=== PATIENT | female | born 1970 | race Caucasian/White ===

== ENCOUNTER 2019-12-26 19:17 | Emergency (ER) | payer OTHER ==
[~2019-12-26] VITALS: Ht 170.2 cm; Wt 54.4 kg
[2019-12-26] MEDS ORDERED: BENADRYL25 MG PO (19:33)
[2019-12-26] MEDS ORDERED: FEXOFENADINE HC60 MG PO (19:33)
[2019-12-26] MEDS ORDERED: ADDERALL 10 MG10 MG (19:33)
[2019-12-26 19:34] VITALS: Ht 170.2 cm; Wt 54.4 kg
[2019-12-26 20:06] LABS: BASOPHILS 0.5 % (0-2); EOSINOPHILS 1.2 % (0-7); HEMATOCRIT 34.8 % (36.0-48.0); IMMATURE GRANULOCYTES 0.2 % (0-5); LYMPHOCYTES 28.3 % (15-50); MCH 20.7 pg (26.0-34.0); MCHC 31.6 g/dL (31.0-37.0); MCV 65.5 fL (80.0-100.0); NEUTROPHILS 62.8 % (40-80); PLATELET COUNT 276 10x3/uL (130-400); RBC 5.31 10x6/uL (4.00-5.40); RDW 15.6 % (11.5-14.5)
[2019-12-26 20:20] LABS: CALC OSMOLALITY 282 mosm/kg (275-300); CALCIUM 8.9 mg/dL (8.5-10.1); CARBON DIOXIDE 30.3 mmol/L (21.0-32.0); CHLORIDE - SERUM 104 mmol/L (98-107); CREATININE - SERUM 0.8 mg/dL (0.6-1.3); GLUCOSE 135 mg/dL (74-106); POTASSIUM - SERUM 3.7 mmol/L (3.5-5.1); SODIUM 139 mmol/L (136-145); UREA NITROGEN 21 mg/dL (7-18); eGFR NON AFRICAN AMERICAN 81 mL/min (90-120)
[2019-12-26 20:31] LABS: ALKALINE PHOSPHATASE 93 U/L (30-120); ALT (SGPT) 33 U/L (10-68); BILIRUBIN - TOTAL 0.69 mg/dL (0.2-1.3); LIPASE 93 U/L (73-393); PROTEIN - SERUM 6.7 g/dL (6.4-8.2)
[2019-12-26 20:31] LABS: HCG SERUM NEGATIVE (NEGATIVE)
[2019-12-26 21:10] LABS: BILIRUBIN NEGATIVE (NEGATIVE); EPITHELIAL CELLS 0-5 /hpf (0-5); GLUCOSE NEGATIVE (NEGATIVE); KETONE NEGATIVE (NEGATIVE); NITRITE NEGATIVE (NEGATIVE); UROBILINOGEN NORMAL (NORMAL); WHITE CELLS - URINE RARE /hpf (NEGATIVE)
[2019-12-26 21:11] LABS: BACTERIA MODERATE /hpf (NEGATIVE)
[2019-12-26] MEDS ORDERED: CHRONULAC30 ML PO (21:21)
[2019-12-26] MEDS ORDERED: ZOFRAN ODT4 MG/UDTAB PO (21:21)
[2019-12-26 22:00] VITALS: BP 132/78
== END 2019-12-26 22:01 | disposition home or self-care (01) ==
LOC: D.ER 19:17
PROVIDERS: Family Medicine
DX: R10.9 Unspecified abdominal pain (principal); D64.9 Anemia, unspecified; K59.00 Constipation, unspecified; R16.0 Hepatomegaly, not elsewhere classified; N85.9 Noninflammatory disorder of uterus, unspecified; R14.0 Abdominal distension (gaseous)